=== PATIENT | female | born 1945 | race Two or more races ===

== ENCOUNTER 2020-04-03 10:04 | Outpatient (CLI) | payer OTHER | END 2020-04-03 10:17 | disposition home or self-care (01) | LOC: MRI 10:04 → RAD 10:04 → MRI 10:15 → RAD 10:17 | PROVIDERS: ATTEND Orthopaedic Surgery | DX: M22.41 Chondromalacia patellae, right knee (principal); M25.561 Pain in right knee; M25.562 Pain in left knee | CPT/HCPCS: 73721 ==

== ENCOUNTER → 2020-10-29 | Outpatient (CLI) | payer OTHER | END | disposition home or self-care (01) | LOC: MRI 10:45 | PROVIDERS: ATTEND Psychiatry & Neurology Clinical Neurophysiology | DX: M43.17 Spondylolisthesis, lumbosacral region (principal); M48.061 Spinal stenosis, lumbar region without neurogenic claudication | CPT/HCPCS: 72148 ==

== ENCOUNTER 2021-01-26 12:14 | Outpatient (CLI) | payer OTHER | END 2021-01-26 12:26 | disposition home or self-care (01) | LOC: MRI 12:14 | PROVIDERS: ATTEND Orthopaedic Surgery | DX: M17.12 Unilateral primary osteoarthritis, left knee (principal); M25.462 Effusion, left knee; M25.562 Pain in left knee | CPT/HCPCS: 73718 ==